=== PATIENT | female | born 1965 | race African-American/Black ===

== ENCOUNTER 2016-05-06 05:23 | Day surgery (SDC) | payer MEDICARE ==
[2016-05-05 12:25] LABS: HEMATOCRIT 37.2 % (36.0-48.0); HEMOGLOBIN 12.2 g/dL (12-16); MCH 27.9 pg (26.0-34.0); MCHC 32.8 g/dL (31.0-37.0); MCV 84.9 fL (80.0-100.0); RBC 4.38 10x6/uL (4.00-5.40); WBC 4.5 10x3/uL (4.8-10.8)
[2016-05-05 12:39] LABS: ANION GAP 11.8 mmol/L (8-16); CALCIUM 7.6 mg/dL (8.5-10.1); CARBON DIOXIDE 27.3 mmol/L (21.0-32.0); CREATININE - SERUM 1.1 mg/dL (0.6-1.3); POTASSIUM - SERUM 4.1 mmol/L (3.5-5.1)
[~2016-05-06] VITALS: Ht 162.6 cm; Wt 105.7 kg
[~2016-05-06 05:23] MED LIST: BACLOFEN10 MG PO; COZAAR50 MG PO; FARXIGA10 MG PO; FLAGYL500 MG PO; GABAPENTIN100 MG PO; HUMALOG 30100 UNITS/ SC; HYDROCODON-ACE1 EAC9 PO; HYDROCODONE-APA1 TAB PO; KEFLEX500 MG PO; LANTUS INSULIN10 ML SQ; LANTUS SOL100 UNIT/1; LANTUS SOL100 UNIT/1 SC; LISINOPRIL-HCTZ1 T11 PO; MOBIC7.5 MG PO; NORVASC10 MG PO; SYNTHROID150 MCG PO; SYNTHROID25 MCG PO; ZESTRIL10 MG PO; ZOCOR20 MG PO; ZOFRAN4 MG PO
[2016-05-06 08:02] VITALS: BP 142/91; Ht 162.6 cm; Wt 105.7 kg
--- NOTE | 2016-05-06 11:08 | NUR ---
EXT 2500,2525,2513. UNABLE TO REACH FAMILY. EXT 2550 TALKED TO GINO IN OP NO FAMILY IN ROOM. -ECOSTER
--- NOTE | 2016-05-06 14:14 | NUR ---
1407--PT COMPLAINS OF NAUSEA, BASIN WISE PROVIDED AND 4MG ZOFRAN GIVEN SIVP. WILL CONTINUE TO MONITOR. DMITRY ZAVALA
--- NOTE | 2016-05-06 14:45 | NUR ---
1445--PT CONTINUES TO COMPLAIN OF NAUSEA, REPORT CALLED TO DR PROCTOR, NEW ORDER RECIEVED. DMITRY RN
--- NOTE | 2016-05-06 17:34 | NUR ---
1504--ZOFRAN 4MG GIVEN SIVP. DMITRY ZAVALA 1615--PT SLEEPING, HARD TO AROUSE VERBALLY. PT REPORTS NAUSEA TO BE BETTER BUT DENIES NEEDING TO URINATE, WILL CONTINUE TO MONITOR. DMITRY ZAVALA 4367--PT VOIDS WITHOUT DIFFICULTY, IV DC'D. DMITRY ZAVALA
--- NOTE | 2016-05-08 09:40 | OP ---
PATIENT NAME: SAMRA CERDA MEDICAL RECORD: [id number] :61 LOCATION:D.[facility] ADMISSION DATE: SURGEON: JAYESH PROCTOR MD DATE OF OPERATION: 05/06/2016 PREOPERATIVE DIAGNOSIS: Recurrent umbilical hernia. POSTOPERATIVE DIAGNOSIS: Recurrent incarcerated umbilical hernia. PROCEDURES: Laparoscopic recurrent incarcerated umbilical hernia repair with Ventralight ST mesh, which was 4.5 inches in diameter and this was circular. SURGEON: Jayesh Proctor MD. VENDING MACHINE REFILLER: None. BLOOD LOSS: Minimal. ANESTHESIA: General. COMPLICATIONS: None. The risks, possible complications and alternatives to procedure were explained to the patient. She elects to proceed. OPERATIVE COURSE: The patient was conveyed to the operating room electively on 05/06/2016. General anesthesia was induced by the anesthesia staff. The abdomen was sterilely prepped and draped. An incision was accomplished in the left upper quadrant. A Veress needle was inserted through the incision into the peritoneal cavity. CO2 insufflation was begun. Once a sufficient pneumoperitoneum had been achieved, a 5-mm trocar was inserted here utilizing the Optiview device. CO2 insufflation was continued once the 5-mm trocar had been inserted. Another 5-mm trocar was inserted this time in the left side of the abdomen. Two 5-mm trocars were inserted in the right side of the abdomen. There was a great deal of adhesions. Most of them omental; however, there were some colonic adhesions in the cephalad. I began to take down the adhesions utilizing the Harmonic scalpel. There was no bowel injury during this adhesiolysis, which took 25 minutes. The hernia was at the inferior aspect of the mesh that had been previously placed. Once a thorough adhesiolysis had been performed, a prevesicular flap was created with the Harmonic scalpel. Intravenous methylene blue was given. There was no spillage of methylene blue and therefore, no evidence of a bladder injury. I completed taking down the anterior portion of the triangular ligament of the liver with the Harmonic scalpel. A small skin incision was accomplished at the inferior aspect of the umbilicus. I advanced a laparoscopic suture passer. I changed out the left upper quadrant 5-mm trocar for a 12-mm trocar. I advanced a rolled up Ventralight ST mesh in the peritoneal cavity. I grabbed the tubing with the laparoscopic suture passer and brought it out through the anterior abdominal wall. The tubing was cut. It was attached to the inflation device and then inflated. I then pulled the mesh up against the anterior abdominal wall, so that it abutted the anterior abdominal wall and the mesh. I did not attempt to remove the mesh that had been there previously. After inflating the inflation device, circumferential tacking OPERATIVE REPORT [id number] SAMRA CERDA with the SecureStrap Tacker was performed. The herniorrhaphy was then completed with circumferential tacking utilizing the SorbaFix Tacker. I cut the tubing. I removed the tubing as well as the inflation device in its entirety. There was no bleeding. I desufflated to a pressure of 8 and there was still no bleeding. The 12-mm trocar was removed. The Samuel-Rajni suture closure device and 0 Vicryl suture were used to close the left upper quadrant trocar site. The skin incisions were closed with interrupted 3-0 and 4-0 Vicryls. Benzoin and Steri-Strips were applied. A pressure dressing was applied as well as an abdominal binder. The patient will be dismissed home on [place] for pain. I will see her in the office in 2-3 weeks. TRANSINT:[id number] Voice Confirmation ID: [id number] DOCUMENT ID: [id number] JAYESH PROCTOR MD at 0940 CC: SHIRA KANG MD [id number] DICTATION DATE: 05/06/16 1241 SUPERVISOR STRIPPING: 05/06/162033 [facility] 05/06/16 [facility] [address] [place] [address]
--- NOTE | 2016-05-08 09:40 | HP ---
PATIENT: SAMRA CERDA MEDICAL RECORD: [id number] ACCOUNT: [id number] LOCATION:[facility] : 61 ADMISSION DATE: 05/06/16 HISTORY AND PHYSICAL EXAMINATION Addendum I have seen the patient. I have examined her this morning. We discussed the risks, possible complications and alternatives to procedure. She has recurrent umbilical hernia. I performed her prior umbilical hernia repair with mesh. Her physical examination is unchanged since I saw her in the office. TRANSINT:[id number] Voice Confirmation ID: [id number] DOCUMENT ID: [id number] JAYESH PROCTOR MD at 0940 CC: [id number] DICTATION DATE: 05/06/16 1006 LICENSED MENTAL HEALTH PROFESSIONAL: 05/06/16 1117 [facility] 05/06/16 [address] [place] [address]
== END 2016-05-06 17:50 | disposition home or self-care (01) ==
LOC: D.OPS 05:23 → D.PAN 08:00 → D.OPS 17:50
PROVIDERS: Anesthesiology
DX: K42.0 Umbilical hernia with obstruction, without gangrene (principal)

== ENCOUNTER 2016-06-18 06:03 | Day surgery (SDC) | payer MEDICARE ==
[2016-05-06 08:02] VITALS: BMI 40.1
--- NOTE | 2016-06-18 13:29 | NUR ---
1300-RECD TO ROOM FOR COLONOSCOPY. NO RESULTS FROM COLON PREP. DR LOZADA NOTIFIED. PROCEDURE CX. DIRECTED TO OFFICE FOR ADDITIONAL INSTRUCTIONS AND TO RESCHEDULE.
== END 2016-06-18 13:15 | disposition home or self-care (01) ==
LOC: D.OPS 06:03
DX: R10.9 Unspecified abdominal pain (principal); Z80.0 Family history of malignant neoplasm of digestive organs; Z01.810 Encounter for preprocedural cardiovascular examination; Z01.811 Encounter for preprocedural respiratory examination; Z01.812 Encounter for preprocedural laboratory examination; Z53.9 Procedure and treatment not carried out, unspecified reason

== ENCOUNTER → 2016-09-24 07:50 | Outpatient (CLI) | payer MEDICARE ==
[2016-05-06 08:02] VITALS: BMI 40.1
== END | disposition home or self-care (01) ==
LOC: D.US 07:50
DX: K76.0 Fatty (change of) liver, not elsewhere classified (principal)

== ENCOUNTER 2016-09-28 08:13 | Day surgery (SDC) | payer MEDICARE ==
[2016-09-24 08:30] LABS: BILIRUBIN - DIRECT 0.06 mg/dL (0.00-0.30); BILIRUBIN - INDIRECT 0.16 mg/dL (0.00-1.00); BILIRUBIN - TOTAL 0.22 mg/dL (0.2-1.3); PROTEIN - SERUM 7.1 g/dL (6.4-8.2)
[~2016-09-28] VITALS: Ht 162.6 cm; Wt 102.3 kg
[2016-09-28 08:40] VITALS: BP 139/74; Ht 162.6 cm; Wt 102.3 kg
[2016-09-28 08:48] LABS: BASOPHILS 0.2 % (0-2); EOSINOPHILS 2.4 % (0-7); HEMATOCRIT 35.1 % (36.0-48.0); HEMOGLOBIN 11.6 g/dL (12-16); LYMPHOCYTES 33.9 % (15-50); MCH 28.4 pg (26.0-34.0); MEAN PLATELET VOLUME 10.8 fL (7.4-10.4); MONOCYTES 5.8 % (2-11); NEUTROPHILS 57.7 % (40-80); PLATELET COUNT 164 10x3/uL (130-400); RBC 4.08 10x6/uL (4.00-5.40); RDW 12.7 % (11.5-14.5); WBC 5.5 10x3/uL (4.8-10.8)
[2016-09-28 09:27] LABS: ANION GAP 8.9 mmol/L (8-16); CALCIUM 8.2 mg/dL (8.5-10.1); CARBON DIOXIDE 30.2 mmol/L (21.0-32.0); CREATININE - SERUM 1.2 mg/dL (0.6-1.3); POTASSIUM - SERUM 3.1 mmol/L (3.5-5.1)
--- NOTE | 2016-09-28 11:54 | NUR ---
1154-INJECT GARCIA INK 3 CC IN CECAL AREA.
--- NOTE | 2016-09-28 13:00 | NUR ---
UP AND DRESSED. AWAITING DAUGHTER TO RETURN FOR RIDE FOR DISCHARGE. INSTRUCTED TO CALL WHEN READY FOR A WHEELCHAIR FOR DISCHARGE.
--- NOTE | 2016-09-29 07:48 | OP ---
PATIENT NAME: SAMRA CERDA MEDICAL RECORD: [id number] :61 LOCATION:D.[facility] ADMISSION DATE: SURGEON: PATTY LOZADA DO DATE OF OPERATION: 09/28/2016 PROCEDURE: Colonoscopy with polypectomy, hemostasis, and submucosal injection. INDICATIONS FOR PROCEDURE: Family history of colon cancer in her father as well as change in bowel habits, which have resolved. SCOPE: Olympus video pediatric colonoscope. MEDICATIONS: Propofol 950mg IV per anesthesia. ESTIMATED BLOOD LOSS: 3 mL. COMPLICATIONS: No immediate complications. FINDINGS: Informed consent was given. The patient was made comfortable with the above medication. After reaching an adequate level of sedation by slow IV push, the patient was placed on her left side. A digital rectal examination was performed, it was normal. The endoscope was then advanced under direct visualization through the rectum to the cecum with visualization of the appendiceal orifice and ileocecal valve. In the cecum, there were 2 semi-sessile and flat polyps measuring approximately 1-1.2 cm in size, a piece. The first polyp was located near the appendiceal orifice. An attempt was made to lift the polyp with normal saline injection. The polyp did not lift well. A hot snare was placed around the entire polyp and a snare and cautery polypectomy was performed. After the polyp was removed, there was noted to be a moderate amount of bleeding in an arterial fashion. Two endoclips were placed successfully with good hemostasis noted. A second polyp in the cecum located just behind a fold was visualized and measured the same size. It was attempted to be lifted, but did not lift ease early. Biopsies were taken and there was noted to be a fair amount of bleeding from the biopsy sites. For this reason, a simple ablation was attempted. Forcep biopsies were used for this. The entire polyp could not be ablated due to its location right behind the fold. When cautery was used, the fold covering the polyp was inadvertently being a bleed as well. For this reason, this maneuver was discontinued. A Hanna Net was used to pick up attendant the polyp that was located in the cecum. A withdrawal with the polyp was performed over approximately 6 minutes. No obvious polyps were seen, but there was some fluid that could not be removed and the polyp in the Hanna Net was impeding some view. Retroflexion was performed after the polyp was removed from the patient. There were some small nonbleeding internal hemorrhoids visualized. The scope was then withdrawn from the patient. The patient tolerated the procedure well and there were no complications. IMPRESSION: 1. Two polyps located in the cecum, 1 removed with hot snare, the other biopsied and partially ablated. A tattoo was placed distally to the second polyp to aid in visualization on future procedures. 2. No other polyps were visualized, but this was a limited examination due to having a polyp in the net with the catheter through the channel and not being able to remove fluid for further visualization. 3. Small nonbleeding internal hemorrhoids. OPERATIVE REPORT [id number] SAMRA CERDA PLAN AND RECOMMENDATIONS: 1. Discharge home when parameters are met. 2. High fiber diet. 3. Continue current medications, but hold any possible medications which could thin the blood including antinflammatory. 4. We will make a referral to Dr. Sen for APC of the remaining cecal polyp and any residual tissue which may be visualized in the cecum. 5. Further recommendations pending, outcome of Dr. Sen's procedure. TRANSINT:[id number] Voice Confirmation ID: [id number] DOCUMENT ID: [id number] PATTY LOZADA DO at 0748 CC: [id number] DICTATION DATE: 09/28/16 1212 PLANT SAFETY ENGINEER: 09/28/16 1332 [facility] 09/28/16 [facility] [address] [place] [address]
== END 2016-09-28 13:36 | disposition home or self-care (01) ==
LOC: D.OPS 08:13
PROVIDERS: Anesthesiology; Internal Medicine Gastroenterology
DX: D12.0 Benign neoplasm of cecum (principal); K64.8 Other hemorrhoids; Z80.0 Family history of malignant neoplasm of digestive organs; Z01.812 Encounter for preprocedural laboratory examination

== ENCOUNTER → 2016-11-24 17:58 | Outpatient (CLI) | payer MEDICARE ==
[2016-09-28 08:40] VITALS: BMI 38.7
== END | disposition home or self-care (01) ==
LOC: D.MAMMO 10:15
DX: Z12.31 Encounter for screening mammogram for malignant neoplasm of breast (principal)

== ENCOUNTER 2016-12-09 05:23 | Day surgery (SDC) | payer MEDICARE ==
[2016-12-07 11:22] LABS: HEMATOCRIT 38.9 % (36.0-48.0); MCH 28.4 pg (26.0-34.0); MCHC 33.4 g/dL (31.0-37.0); MCV 84.9 fL (80.0-100.0); MEAN PLATELET VOLUME 10.6 fL (7.4-10.4); RBC 4.58 10x6/uL (4.00-5.40); RDW 12.7 % (11.5-14.5); WBC 5.4 10x3/uL (4.8-10.8)
[2016-12-07 11:34] LABS: ANION GAP 13.2 mmol/L (8-16); CARBON DIOXIDE 26.6 mmol/L (21.0-32.0); CREATININE - SERUM 1.3 mg/dL (0.6-1.3); POTASSIUM - SERUM 3.8 mmol/L (3.5-5.1)
[2016-12-09 06:34] VITALS: BP 127/86; BMI 39.5
--- NOTE | 2016-12-09 08:43 | NUR ---
PILLOW BETWEEN ARMS AND FOAM BETWEEN LEGS
--- NOTE | 2016-12-09 08:52 | NUR ---
BOVIE PADS X2 PLACED ON DORON THIGHS. L/N [id number] EXP 09/22/18 L/N [id number] EXP 04-27-18
--- NOTE | 2016-12-09 15:08 | NUR ---
1130--IV DC'D, PT UP TO DRESS AT THIS TIME. DMITRY ZAVALA 1140--DISCHARGE INSTRUCTIONS GIVEN, PT VERBALIZES UNDERSTANDING. PT OFF UNIT VIA WC. DMITRY ZAVALA
--- NOTE | 2016-12-11 10:04 | OP ---
PATIENT NAME: SAMRA CERDA MEDICAL RECORD: [id number] :61 LOCATION:D.[facility] ADMISSION DATE: SURGEON: JAYESH PROCTOR MD DATE OF OPERATION: 12/09/2016 PREOPERATIVE DIAGNOSIS: History of cecal polyps times 2, which have been tattooed. POSTOPERATIVE DIAGNOSES: 1. Cecal polyp, which has been tattooed. The tattoo was faded. 2. Scar at the site of the secondary polyp. I noted no recurrent or persistent polypoid tissue. I noted no tattoo at the scar. PROCEDURES: 1. Total colonoscopy to cecum. 2. Cecal polypectomy. 3. Endoscopic epinephrine injection for hemostasis. 4. Endoscopic tattooing of the scar as well as the polypectomy site, which was underneath the fold. 5. Cold biopsy of the scar and then treatment with the argon plasma bottle filler. SURGEON: Jayesh Proctor MD STAGE DRIVER: None. BLOOD LOSS: Minimal. ANESTHESIA: General. COMPLICATIONS: None. The risks, possible complications and alternatives to the procedure were explained to the patient. She elects to proceed. OPERATIVE COURSE: The patient was conveyed to the operating room electively on 12/09/2016. General anesthesia was induced by the anesthesia staff. The patient was placed in the Walker position. A digital rectal examination was performed. A colonoscope was inserted through the anus. It was easily advanced to the cecum. The prep was adequate. I noted the cecal polyp, which was underneath the fold. In order to get the cecal polyp to lift away from the colonic wall and also to provide a heat sink in the cecum, which is the area of the colon that most likely perforated with this technique and also for hemostasis, I elected to perform endoscopic epinephrine injection through sclerotherapy needle. The sclerotherapy needle was advanced. The needle was deployed. I injected epinephrine at 4 points around the polyp. I then performed a piecemeal polypectomy utilizing the cold endoscopic biopsy forceps. I removed the entire polyp in this fashion. I then treated the area with the argon plasma bottle filler. In order to identify this area in the future should there be regrowth of the polypoid tissue, I elected to retattoo the area. I advanced a sclerotherapy needle. Through the sclerotherapy needle, I injected submucosally several cc of Myrtle ink. Sclerotherapy needle was removed. OPERATIVE REPORT [id number] SAMRA CERDA I examined the rest of the cecum. I noted the scar where the previous polypectomy by Dr. Fontana had been performed. I biopsied the scar. I noted no recurrence or persistence of a polyp. I treated the area with the argon plasma bottle filler utilizing the right colon setting in the forced mode. I then advanced the sclerotherapy needle. I performed submucosal endoscopic tattooing of the area around the scar with several cc of Myrtle ink. The endoscope was then withdrawn under direct vision. A combination of direct imaging as well as narrow band imaging was performed. A retroflexed view was obtained in the rectum. I then unretroflexed the scope and removed it under direct vision. I will plan to see the patient in my office in 2-3 weeks. I will plan for her next colonoscopy to take place with the argon plasma bottle filler in 1 year. As she is at a risk for a post-polypectomy syndrome, she is going to be dismissed home on 7 days of Cipro as well as 7 days of Flagyl. TRANSINT:[id number] Voice Confirmation ID: [id number] DOCUMENT ID: [id number] JAYESH PROCTOR MD at 1004 CC: SHIRA KANG MD and PATTY FONTANA DO [id number] DICTATION DATE: 12/09/16 1002 TAXATION CONSULTANT: 12/09/16 1205 [facility] 12/09/16 [facility] [address] [place] [address]
--- NOTE | 2016-12-11 10:04 | HP ---
PATIENT: SAMRA CERDA MEDICAL RECORD: [id number] ACCOUNT: [id number] LOCATION:[facility] A : 61 ADMISSION DATE: 12/09/16 HISTORY AND PHYSICAL EXAMINATION ADDENDUM There is a typed history and physical on the chart. I reviewed my note. The patient's primary care physician is Dr. Hayward. The patient's lamp cleaner is Dr. Fontana. The patient has 2 cecal polyps. They have been biopsied. PLAN: For colonoscopy with polypectomy utilizing the argon plasma spring assembler. TRANSINT:[id number] Voice Confirmation ID: [id number] DOCUMENT ID: [id number] JAYESH PROCTOR MD at 1004 CC: SCOTTY ESPINOZA MD and PATTY FONTANA DO [id number] DICTATION DATE: 12/09/16 0950 CASE LINER: 12/09/16 1052 [facility] 12/09/16 [address] [place] [address]
== END 2016-12-09 11:40 | disposition home or self-care (01) ==
LOC: D.OPS 05:23 → D.PAN 08:00 → D.OPS 11:40
PROVIDERS: Anesthesiology
DX: D12.0 Benign neoplasm of cecum (principal); Z01.812 Encounter for preprocedural laboratory examination

== ENCOUNTER → 2016-12-22 12:28 | Outpatient (CLI) | payer MEDICARE ==
[2016-12-09 06:34] VITALS: BMI 39.5
== END | disposition home or self-care (01) ==
LOC: D.MAMMO 08:30
DX: R92.8 Other abnormal and inconclusive findings on diagnostic imaging of breast (principal)

== ENCOUNTER 2017-04-06 10:34 | Emergency (ER) | payer MEDICARE ==
[2017-04-06 12:11] LABS: BASOPHILS 0.2 % (0-2); EOSINOPHILS 2.1 % (0-7); HEMATOCRIT 39.8 % (36.0-48.0); HEMOGLOBIN 13.4 g/dL (12-16); IMMATURE GRANULOCYTES 0.2 % (0-5); LYMPHOCYTES 31.5 % (15-50); MCH 28.3 pg (26.0-34.0); MCHC 33.7 g/dL (31.0-37.0); MCV 84.1 fL (80.0-100.0); MEAN PLATELET VOLUME 11.4 fL (7.4-10.4); MONOCYTES 8.1 % (2-11); NEUTROPHILS 57.9 % (40-80); PLATELET COUNT 154 10x3/uL (130-400); RBC 4.73 10x6/uL (4.00-5.40); RDW 12.9 % (11.5-14.5); WBC 6.1 10x3/uL (4.8-10.8)
[2017-04-06 12:29] LABS: ANION GAP 11.3 mmol/L (8-16); BILIRUBIN - TOTAL 0.43 mg/dL (0.2-1.3); CALCIUM 8.8 mg/dL (8.5-10.1); CARBON DIOXIDE 26.1 mmol/L (21.0-32.0); CREATININE - SERUM 1.1 mg/dL (0.6-1.3); POTASSIUM - SERUM 4.4 mmol/L (3.5-5.1); PROTEIN - SERUM 7.4 g/dL (6.4-8.2)
[2017-04-06 12:42] LABS: APPEARANCE HAZY (CLEAR); BILIRUBIN NEGATIVE (NEGATIVE); COLOR YELLOW (YELLOW); GLUCOSE 1000 mg/dL (NEGATIVE); KETONE NEGATIVE (NEGATIVE); NITRITE NEGATIVE (NEGATIVE); PROTEIN 2+ mg/dL (NEGATIVE); UROBILINOGEN NORMAL (NORMAL)
[2017-04-06 12:43] LABS: BACTERIA MODERATE /hpf (NONE SEEN); EPITHELIAL CELLS 0-5 /hpf (0-5); HYALINE CAST OCC /lpf (NONE SEEN); MUCUS <1+ /lpf (NONE SEEN); RED CELLS - URINE 0-5 /hpf (0-5); WHITE CELLS - URINE 0-5 /hpf (0-5)
== END 2017-04-06 14:50 | disposition home or self-care (01) ==
LOC: D.ER 10:34
PROVIDERS: Physician Assistant
DX: M54.16 Radiculopathy, lumbar region (principal); E11.9 Type 2 diabetes mellitus without complications; I10 Essential (primary) hypertension; R10.30 Lower abdominal pain, unspecified

== ENCOUNTER 2018-03-21 08:00 | Outpatient (CLI) | payer MEDICARE | END 2018-03-21 09:00 | disposition home or self-care (01) | LOC: D.MAMMO 08:00 | DX: Z12.31 Encounter for screening mammogram for malignant neoplasm of breast (principal) ==

== ENCOUNTER 2018-06-18 12:40 | Observation (INO) | payer MEDICARE ==
[~2018-06-18] VITALS: Ht 162.6 cm; Wt 104.2 kg
[2018-06-18 13:11] LABS: BASOPHILS 0.1 % (0-2); EOSINOPHILS 0 % (0-7); HEMATOCRIT 35.7 % (36.0-48.0); IMMATURE GRANULOCYTES 0.3 % (0-5); MCH 28.5 pg (26.0-34.0); MCHC 33.6 g/dL (31.0-37.0); MCV 84.8 fL (80.0-100.0); MEAN PLATELET VOLUME 10.8 fL (7.4-10.4); MONOCYTES 3.5 % (2-11); NEUTROPHILS 84.1 % (40-80); PLATELET COUNT 151 10x3/uL (130-400); RBC 4.21 10x6/uL (4.00-5.40); RDW 13.1 % (11.5-14.5); WBC 9.6 10x3/uL (4.8-10.8)
[2018-06-18 13:19] LABS: APTT 37.9 SECONDS (22.8-39.4); INR 1.15 (0.85-1.17); PROTIME 14.2 SECONDS (11.6-15.0)
[2018-06-18 13:33] LABS: ALBUMIN 2.5 g/dL (3.4-5.0); ALKALINE PHOSPHATASE 91 U/L (46-116); ALT (SGPT) 20 U/L (10-68); BILIRUBIN - TOTAL 0.36 mg/dL (0.2-1.3); CALC OSMOLALITY 281 mosm/kg (275-300); CALCIUM 8.1 mg/dL (8.5-10.1); CARBON DIOXIDE 22.9 mmol/L (21.0-32.0); CHLORIDE - SERUM 103 mmol/L (98-107); CREATININE - SERUM 1.4 mg/dL (0.6-1.3); POTASSIUM - SERUM 3.7 mmol/L (3.5-5.1); SODIUM 137 mmol/L (136-145); UREA NITROGEN 12 mg/dL (7-18); eGFR NON AFRICAN AMERICAN 41 mL/min (90-120)
[2018-06-18 13:38] LABS: GLUCOSE 245 mg/dL (74-106)
[2018-06-18 13:48] LABS: CKMB 1.2 U/L (0.0-3.6); CREATINE KINASE 339 UL (21-215); PRO BNP 1888 pg/mL (0-125)
[2018-06-18 13:52] LABS: TROPONIN-I 0.064 ng/mL (0.000-0.060)
--- NOTE | 2018-06-18 13:55 | NUR ---
TROPONIN 0.064
[2018-06-18 14:02] LABS: APPEARANCE CLEAR (CLEAR); COLOR YELLOW (YELLOW)
[2018-06-18 14:03] LABS: BILIRUBIN NEGATIVE (NEGATIVE); GLUCOSE 250 mg/dL (NEGATIVE); KETONE NEGATIVE (NEGATIVE); NITRITE NEGATIVE (NEGATIVE); PROTEIN 3+ mg/dL (NEGATIVE); UROBILINOGEN NORMAL (NORMAL)
[2018-06-18 14:05] LABS: BACTERIA MANY /hpf (NONE SEEN); HYALINE CAST OCC /lpf (NONE SEEN); MUCUS >1+ /lpf (NONE SEEN)
[2018-06-18 14:08] LABS: AMYLASE - SERUM 33 U/L (25-115); LIPASE 114 U/L (73-393)
--- NOTE | 2018-06-18 14:30 | NUR ---
PATIENT SLEEPING AROUSES TO VERBAL STIMULI. C/O INCREASED SOB AND FATIGUE. FAMILY AT BEDSIDE. UPDATED ON PLAN OF CARE AND DELAYS IN CARE. WILL CONTINUE TO MONITOR.
[2018-06-18 15:00] VITALS: BP 171/88
--- NOTE | 2018-06-18 15:30 | NUR ---
PATIENT SLEEPING AROUSES TO VERBAL STIMULI. FAMILY AT BEDSIDE. UPDATED ON PLAN OF CARE AND DELAYS IN CARE. WILL CONTINUE TO MONITOR.
[2018-06-18 16:23] VITALS: BP 181/96
--- NOTE | 2018-06-18 17:23 | NUR ---
ADMITTED TO ROOM 2107 FROM ER. ALERT ADN ORIENTED. IV R AC WITH NS AT 100CC/HR. CL IN REACH. SKIN CDI. CL IN REACH. SAFETY PRECAUTIONS GIVEN.
[2018-06-18 17:40] VITALS: BMI 38.7
--- NOTE | 2018-06-18 18:02 | NUR ---
SL R AC INFILTRATED ON ADMIT. HEAT APPLIED AND SL DC'D WITH CATH INTACT. L HAND SL WON'T FLUSH. WILL NEED NEW IV SITED.
[2018-06-18] MEDS ORDERED: BASAGLAR INSULIN SQ (18:11)
--- NOTE | 2018-06-18 18:17 | NUR ---
SCDS AND TELEMETRY PLACED ON PATIENT.
--- NOTE | 2018-06-18 18:21 | NUR ---
NO CHANGE IN ASSESSMENT. FAMILY AT BS. CL IN REACH.
--- NOTE | 2018-06-18 19:26 | NUR ---
PT IN BED. DENIES NEEDS AT THIS TIME.
[2018-06-18 19:50] VITALS: BP 134/66
--- NOTE | 2018-06-18 20:48 | NUR ---
IV SITED TO L WRIST 22G 1 STICK. IV IN L HAND REMOVED WITH CATH TIP INTACT.
--- NOTE | 2018-06-18 21:35 | NUR ---
PT REFUSING TELEMETRY AT THIS TIME.
[2018-06-18 23:55] VITALS: BP 136/66
--- NOTE | 2018-06-19 02:02 | NUR ---
I have reviewed this patient and I concur with the Shift Assessment completed by the Licensed Practical Nurse today this shift.
[2018-06-19 03:14] LABS: BASOPHILS 0 % (0-2); EOSINOPHILS 0.2 % (0-7); HEMATOCRIT 35.4 % (36.0-48.0); HEMOGLOBIN 11.7 g/dL (12-16); IMMATURE GRANULOCYTES 0.3 % (0-5); LYMPHOCYTES 15.4 % (15-50); MCH 28.7 pg (26.0-34.0); MCHC 33.1 g/dL (31.0-37.0); MCV 86.8 fL (80.0-100.0); MEAN PLATELET VOLUME 10.6 fL (7.4-10.4); MONOCYTES 7.5 % (2-11); NEUTROPHILS 76.6 % (40-80); PLATELET COUNT 130 10x3/uL (130-400); RBC 4.08 10x6/uL (4.00-5.40); RDW 13.2 % (11.5-14.5); WBC 6.6 10x3/uL (4.8-10.8)
[2018-06-19 03:41] LABS: CALCIUM 7.7 mg/dL (8.5-10.1); CARBON DIOXIDE 23.9 mmol/L (21.0-32.0); CREATININE - SERUM 1.7 mg/dL (0.6-1.3); POTASSIUM - SERUM 3.9 mmol/L (3.5-5.1)
[2018-06-19 03:42] LABS: TROPONIN-I 0.063 ng/mL (0.000-0.060)
[2018-06-19 03:55] VITALS: BP 143/63
--- NOTE | 2018-06-19 07:33 | NUR ---
PT AWAKE AND ORIENTED. NO COMPLAINTS/CONCERNS VOICED AT THIS TIME. CL IN REACH. NO FAMILY AT BEDSIDE AT THIS TIME. SRX2.
[2018-06-19 08:10] VITALS: BP 136/67
[2018-06-19 10:25] VITALS: Ht 162.6 cm; Wt 104.2 kg
[2018-06-19] MEDS ORDERED: FLAGYL500 MG PO (10:27)
[2018-06-19] MEDS ORDERED: FLUTICASONE PRO16 GM NASAL (10:27)
--- NOTE | 2018-06-19 11:28 | NUR ---
ESCORTED OUT VIA WHEELCHAIR TO POV WITH CHILD.
--- NOTE | 2018-06-20 08:38 | MORECARE ---
CASE MANAGEMENT DISCHARGE SUMMARY PATIENT: SAMRA CERDA UNIT: [id number] ADM DATE: 06/18/18 AGE: 53 : 61 SEX: F ROOM/BED: D.2107 AUTHOR: ADELAIDA HER PHYSICIAN: REFERRING PHYSICIAN: SHIRA KANG MD DATE OF SERVICE: 06/20/18 Discharge Plan Patient Name: SAMRA CERDA [facility] [facility] 1965 Planned Disposition: Home Anticipated Discharge Date: 06/19/18 Discharge Date: 06/19/2018 Expected LOS: 1 Initial Reviewer: [email or web address] Initial Review Date: 06/20/2018 Generated: 06/20/18 9:38 am Patient Name: SAMRA CERDA Page [phone] at 0838 All edits/amendments must be made on the electronic document DICTATION DATE: 06/20/18837 PEANUT VENDOR: LILLIE 06/20/1838 RPT#: [id number] DC DATE:06/19/18 STATUS: DIS IN [facility] [address] [facility] [address] END OF REPORT
== END 2018-06-19 11:28 | disposition home or self-care (01) ==
LOC: D.ER 12:40 → D.EDHOLD 16:37 → OBSVTIME 16:38 → D.M2 16:40
PROVIDERS: Family Medicine; ADMIT Family Medicine; ATTEND Family Medicine
DX: J40 Bronchitis, not specified as acute or chronic (principal); J32.9 Chronic sinusitis, unspecified; R79.89 Other specified abnormal findings of blood chemistry; N76.0 Acute vaginitis; E86.0 Dehydration; E11.65 Type 2 diabetes mellitus with hyperglycemia; I10 Essential (primary) hypertension; Z91.14 Patient's other noncompliance with medication regimen; E03.9 Hypothyroidism, unspecified

== ENCOUNTER 2018-07-05 16:39 | Inpatient (IN) | payer MEDICARE ==
[~2018-07-05] VITALS: Ht 162.6 cm; Wt 106.8 kg
[~2018-07-05 16:39] MED LIST changes: +BASAGLAR INSULIN SQ; +FLUTICASONE PRO16 GM NASAL
--- NOTE | 2018-07-05 17:35 | NUR ---
FSBS= 58 MG/DL
[2018-07-05 17:44] VITALS: BP 194/84
[2018-07-05 17:54] LABS: BASOPHILS 0.2 % (0-2); EOSINOPHILS 2.4 % (0-7); HEMATOCRIT 37.1 % (36.0-48.0); HEMOGLOBIN 12.2 g/dL (12-16); IMMATURE GRANULOCYTES 0.2 % (0-5); LYMPHOCYTES 28.5 % (15-50); MCH 28.3 pg (26.0-34.0); MCHC 32.9 g/dL (31.0-37.0); MCV 86.1 fL (80.0-100.0); MEAN PLATELET VOLUME 10.5 fL (7.4-10.4); MONOCYTES 5.9 % (2-11); NEUTROPHILS 62.8 % (40-80); RBC 4.31 10x6/uL (4.00-5.40); RDW 13.6 % (11.5-14.5); WBC 5.4 10x3/uL (4.8-10.8)
[2018-07-05 17:56] LABS: PLATELET COUNT 169 10x3/uL (130-400)
--- NOTE | 2018-07-05 18:00 | NUR ---
MEAL SEVED/APPETITE GOOD
[2018-07-05 18:14] LABS: ALBUMIN 2.7 g/dL (3.4-5.0); ALKALINE PHOSPHATASE 84 U/L (46-116); ALT (SGPT) 26 U/L (10-68); BILIRUBIN - TOTAL 0.17 mg/dL (0.2-1.3); CALC OSMOLALITY 287 mosm/kg (275-300); CALCIUM 8.4 mg/dL (8.5-10.1); CARBON DIOXIDE 26.2 mmol/L (21.0-32.0); CHLORIDE - SERUM 110 mmol/L (98-107); CREATININE - SERUM 1.4 mg/dL (0.6-1.3); POTASSIUM - SERUM 3.6 mmol/L (3.5-5.1); PROTEIN - SERUM 6.8 g/dL (6.4-8.2); SODIUM 145 mmol/L (136-145); UREA NITROGEN 14 mg/dL (7-18); eGFR NON AFRICAN AMERICAN 41 mL/min (90-120)
[2018-07-05 18:15] VITALS: BP 123/49
[2018-07-05 18:18] LABS: GLUCOSE 69 mg/dL (74-106)
[2018-07-05 18:26] LABS: CKMB 2.9 U/L (0.0-3.6); CREATINE KINASE 386 UL (21-215); KETONE - SERUM NEGATIVE (NEGATIVE); MAGNESIUM - SERUM 1.9 mg/dL (1.8-2.4); PRO BNP 196 pg/mL (0-125)
--- NOTE | 2018-07-05 18:26 | NUR ---
FSBS= 111MG/DL
[2018-07-05] MEDS ORDERED: HUMULIN R100 U/ML SQ ×2 (18:35)
[2018-07-05] MEDS ORDERED: NEURONTIN 400400 MG PO (18:36)
[2018-07-05] MEDS ORDERED: LISINOPRIL20 MG PO (18:36)
[2018-07-05] MEDS ORDERED: TOPROL XL25 MG PO (18:36)
[2018-07-05] MEDS ORDERED: COZAAR25 MG PO (18:37)
[2018-07-05] MEDS ORDERED: METOPROLOL TART25 MG PO (18:37)
[2018-07-05 18:54] LABS: TROPONIN-I 0.079 ng/mL (0.000-0.060)
--- NOTE | 2018-07-05 18:57 | NUR ---
RCVD TC FROM LAB TROPONIN = 0.079, DR ALEMAN NOTIFIED
--- NOTE | 2018-07-05 19:01 | NUR ---
BS REPORT TO SALLY LARRY BY SBAR FORMAT
--- NOTE | 2018-07-05 19:17 | NUR ---
PT RETURNED FROM CT
--- NOTE | 2018-07-05 19:24 | NUR ---
BS 102, OJ GIVEN TO PT TO DRINK. PT REPROTS VISION IS SLOWLY RETURNING TO LEFT EYE
[2018-07-05 20:00] VITALS: BP 174/86
[2018-07-05 20:11] LABS: CKMB 2.1 U/L (0.0-3.6); CREATINE KINASE 341 UL (21-215)
[2018-07-05 20:12] LABS: TROPONIN-I 0.077 ng/mL (0.000-0.060)
--- NOTE | 2018-07-05 21:50 | NUR ---
RECIEVED REPORT FROM SALLY CADENA. WHO RECIEVED REPORT FROM ER. LILLY ON INITIAL ASSESMENT. PT VOICED HER CONCERN ABOUT HOW HOT HER ROOM WAS. EXPLAINED THE PT THAT WE ARE WORKING TO GET THE AIR BACK ON. FAN PROVIDED TO PT AT THIS TIME. PIV LAC/ RAC PATENT. NO S/S OF RESP DISTRESS. FAMILY AT BEDSIDE. ADMISSION ASSESSMENT COMPLETED. PT A GOOD HISTORIAN. ALL PT BELONGINGS SENT HOME WITH FAMILY. GLASSES ON, PT STATES SHE IS UNABLE TO SEE ANYTHING RIGHT NOW. TELEMETRY ON, SINUS ON MONITOR. PT DENIES ANY FURTHER NEEDS AT THIS TIME WILL CPOC. CL IN REACH, BED IN LOW, SR UP X2.
--- NOTE | 2018-07-05 22:00 | NUR ---
FOUND PT RAC PIV LEAKING WITH MINIMAL AMOUNT OF BLOOD. REMONED THE IV. PLACED 2X2 GAUZE AND TAPED. FSBS 88 ORANGE JUICE GIVEN. FAMILY STATES BLOOD SUGAR TENDS TO DROP REALLY FAST. WILL CTM.
[2018-07-05 22:11] VITALS: BP 130/68; Ht 162.6 cm; Wt 106.8 kg
[2018-07-06] MEDS ORDERED: HYDROCODON-ACE1 EA10 PO (00:13)
[2018-07-06] MEDS ORDERED: NEURONTIN 300300 MG PO (00:14)
[2018-07-06 00:30] VITALS: BP 162/79
--- NOTE | 2018-07-06 01:30 | NUR ---
PT STATES SHE IS HAVING A HEADACHE AND BACK PAIN AND SHE REFUSED TAKING TYLENOL 650MG. CALLED DR. KANG. ORDERED NORCO-10/325MG Q4HP PRN. FISRT DOSE GIVEN. PT VOICED THANKS. STILL COMPLAINS ABOUT HER ROOM TEMP. WILL CPOC.
--- NOTE | 2018-07-06 02:32 | NUR ---
PT STATES SHE WANTS TO BE WHEELED DOWN TO THE E.R STATES "IT'S TO HOT FOR ME TO STAY IN THIS ROOM FOR ONE MORE SECOND" WHEELED PT DOWN TO E.R WAITING AREA. NOTIFY CHARGE/ SENIOR EMBEDDED SOFTWARE ENGINEER AND ALSO E.R CHEMICAL MANAGER. PT VOICED THANKS AND THAT SHE FEELS A LOT BETTER. WILL CPOC.
--- NOTE | 2018-07-06 04:26 | NUR ---
PT BACK FROM THE E.R PT OVERHEARD PT TALKING TO DAUGHTER ON THE PHONE THAT NO ONE HAS COME TO CHECK ON HER SINCE SHE HAS BEEN IN THE E.R. I HAVE CHECK ON PT TWICE SINCE I WHEEL HER DOWNSTAIRS. LAST TIME WAS TO FIX HER TELE METRY LEADS. EARTH SCIENCE PROFESSOR CHECK BP, 185/83. RECHECKED BP 178/67. WILL NOTIFY DR. KANG. PT STATES SHE DOES NOT FEEL COMFORTABLE STAYING IN THE HOSPITAL. STATES SHE WANTS TO GO HOME. PARK MANAGER CALLED TO ASK WHY PT IV WAS NOT INFUSING. NOTIFY PARK MANAGER, THAT PT STATES SHE DOES NOT WANT ANY IV RUNNING @ THIS TIME. ALSO PT BLOOD GLUCOSE HAS BEEN RUNNING LOW, AND BLOOD PRESSURE INCREASING, AND THAT IT MAKE SENSE NOT TO RUN IV @ HIGH RATE. PT CALLED DAUGHTER. BABAR STATES SHE IS ON HER WAY TO THE HOSPITAL. WILL CPOC.
[2018-07-06 04:30] VITALS: BP 185/83
--- NOTE | 2018-07-06 05:03 | NUR ---
NOTIFIED DR. KANG ABOUT PT'S INCREASING BLOOD PRESSURE. DR KANG ORDERED CLONIDINE O.1MG PO Q2H NEEDED FOR A SYSTOLIC GREATER THAN 160. PT ALSO REFUSED TO GET HER BLOOD SUGAR CHECKED.
--- NOTE | 2018-07-06 05:24 | NUR ---
CLONIDINE 0.1MG GIVEN PER PROVIDERS ORDER. NOTIFIED CHARGE NURSE AND BIODIESEL PRODUCTION TECHNICIAN ABOUT HOW PT IS BEEN DEMANDING. ALSO DR. KANG IS WAS NOTIFIED. HE STATES HE IS GOING TO BE IN THE UNIT FAST HE COULD TO TALK TO ABOUT DIAGNOSIS. WILL CPOC.
--- NOTE | 2018-07-06 07:00 | NUR ---
PT STATES SHE COULD NOT BREATHE IN HER ROOM, PT APPEARS ANXIOUS AND RESTLESS. DC'D PT'S IV BECAUSE PT STATES ITS MAKING HER NERVOUS. WHEELED PT DOWNSTAIRS @ THIS TIME. WILL CPOC.
[2018-07-06 07:40] VITALS: BP 160/83
[2018-07-06 07:40] LABS: BASOPHILS 0.2 % (0-2); EOSINOPHILS 2.5 % (0-7); HEMATOCRIT 35.4 % (36.0-48.0); HEMOGLOBIN 11.6 g/dL (12-16); IMMATURE GRANULOCYTES 0.2 % (0-5); LYMPHOCYTES 26.9 % (15-50); MCH 28.2 pg (26.0-34.0); MCHC 32.8 g/dL (31.0-37.0); MCV 86.1 fL (80.0-100.0); MEAN PLATELET VOLUME 10.9 fL (7.4-10.4); MONOCYTES 4.4 % (2-11); NEUTROPHILS 65.8 % (40-80); PLATELET COUNT 170 10x3/uL (130-400); RBC 4.11 10x6/uL (4.00-5.40); RDW 13.9 % (11.5-14.5); WBC 5.7 10x3/uL (4.8-10.8)
[2018-07-06 08:22] LABS: ALBUMIN 2.6 g/dL (3.4-5.0); ALKALINE PHOSPHATASE 86 U/L (46-116); ALT (SGPT) 22 U/L (10-68); CALCIUM 8.4 mg/dL (8.5-10.1); CARBON DIOXIDE 23.3 mmol/L (21.0-32.0); CHLORIDE - SERUM 108 mmol/L (98-107); CKMB 2.2 U/L (0.0-3.6); CREATINE KINASE 329 UL (21-215); CREATININE - SERUM 1.5 mg/dL (0.6-1.3); POTASSIUM - SERUM 4.1 mmol/L (3.5-5.1); PROTEIN - SERUM 6.7 g/dL (6.4-8.2); SODIUM 141 mmol/L (136-145); UREA NITROGEN 14 mg/dL (7-18); eGFR NON AFRICAN AMERICAN 38 mL/min (90-120)
--- NOTE | 2018-07-06 08:26 | NUR ---
PT REQUEST TO BE TRANSFERRED TO [facility]. CALLED AND SAID THAT THE PT CAN LEAVE AMA AND THEN GO TO [facility] FOR A SECOND OPINION. PT AGREES AND SIGNED AMA FORM. PIV REMOVED WITH CATHETER TIP INTACT AND TELELMETRY REMOVED AND GIVEN TO GRANULATING MACHINE OPERATOR. PT LEFT HOSPITAL WITH HER FAMILY. NOTIFIED FOUNDRY MANAGER, JACQUES ZAVALA AND ASSESSMENT TECHNICIAN, SALONI ZAVALA
[2018-07-06 08:33] LABS: CALC OSMOLALITY 290 mosm/kg (275-300); GLUCOSE 266 mg/dL (74-106); TROPONIN-I 0.091 ng/mL (0.000-0.060)
--- NOTE | 2018-07-06 11:05 | MORECARE ---
CASE MANAGEMENT DISCHARGE SUMMARY PATIENT: SAMRA CERDA UNIT: [id number] ADM DATE: 07/05/18 AGE: 53 : 61 SEX: F ROOM/BED: D.2110 AUTHOR: ADELAIDA HER PHYSICIAN: REFERRING PHYSICIAN: SHIRA KANG MD DATE OF SERVICE: 07/06/18 Discharge Plan Patient Name: SAMRA CERDA Facility: [facility]:[place] : 1965 Planned Disposition: Left Against Medical Advice Anticipated Discharge Date: 07/06/18 Discharge Date: 07/06/2018 Expected LOS: 1 Initial Reviewer: [email or web address] Initial Review Date: 07/06/2018 Generated: 07/06/18 12:05 pm Patient Name: SAMRA CERDA Page [phone] at 1105 All edits/amendments must be made on the electronic document DICTATION DATE: 07/06/18 1104 SHOE TREER: LILLIE 07/06/18 1104 RPT#: [id number] DC DATE:07/06/18 STATUS: DIS IN [facility] [address] [place] [address] END OF REPORT
== END 2018-07-06 08:30 | disposition left against medical advice (07) | DRG 639 ==
LOC: D.ER 16:39 → D.M2 18:58
PROVIDERS: Family Medicine; ADMIT Family Medicine; ATTEND Family Medicine
DX: E11.649 Type 2 diabetes mellitus with hypoglycemia without coma (principal); Z79.4 Long term (current) use of insulin; E11.40 Type 2 diabetes mellitus with diabetic neuropathy, unspecified; H54.7 Unspecified visual loss; I10 Essential (primary) hypertension; R06.02 Shortness of breath; R53.1 Weakness

== ENCOUNTER 2019-06-01 11:56 | Inpatient (IN) | payer MEDICARE, MEDICAID ==
[~2019-06-01] VITALS: Ht 162.6 cm; Wt 107.0 kg
[~2019-06-01 11:56] MED LIST changes: +COZAAR25 MG PO; +HUMULIN R100 U/ML SQ; +HYDROCODON-ACE1 EA10 PO; +LISINOPRIL20 MG PO; +METOPROLOL TART25 MG PO; +NEURONTIN 300300 MG PO; +NEURONTIN 400400 MG PO; +TOPROL XL25 MG PO
[2019-06-01] MEDS ORDERED: COREG6.25 MG PO (13:15)
[2019-06-01] MEDS ORDERED: BASAGLAR K100 UNIT/1 (13:16)
[2019-06-01 13:27] VITALS: BP 125/59
[2019-06-01] MEDS ORDERED: LANTUS SC (13:55)
--- NOTE | 2019-06-01 14:25 | NUR ---
SHE HAS A HARDEN AREA ON HER RIGHT INNER BUTTOCKS. SHE IS ALERT, TALKING. IV STARTED IN THE RIGHT ARM 22 G. PRN PAIN MEDS GIVEN.
[2019-06-01 14:31] LABS: BASOPHILS 0.1 % (0-2); EOSINOPHILS 3.4 % (0-7); HEMATOCRIT 31.5 % (36.0-48.0); HEMOGLOBIN 9.9 g/dL (12-16); IMMATURE GRANULOCYTES 0.5 % (0-5); LYMPHOCYTES 19.1 % (15-50); MCH 26.8 pg (26.0-34.0); MCHC 31.4 g/dL (31.0-37.0); MCV 85.1 fL (80.0-100.0); MONOCYTES 7.7 % (2-11); NEUTROPHILS 69.2 % (40-80); PLATELET COUNT 196 10x3/uL (130-400); RDW 13.4 % (11.5-14.5)
[2019-06-01 14:37] LABS: INR 1.17 (0.85-1.17); PROTIME 14.8 SECONDS (11.6-15.0)
[2019-06-01 14:41] LABS: ALBUMIN 2.9 g/dL (3.4-5.0); ANION GAP 13.7 mmol/L (8-16); BILIRUBIN - TOTAL 0.26 mg/dL (0.2-1.3); CALCIUM 8.1 mg/dL (8.5-10.1); CARBON DIOXIDE 25.2 mmol/L (21.0-32.0); CREATININE - SERUM 2.1 mg/dL (0.6-1.3); POTASSIUM - SERUM 3.9 mmol/L (3.5-5.1); PROTEIN - SERUM 7.2 g/dL (6.4-8.2)
[2019-06-01 16:46] VITALS: BP 128/53
[2019-06-01] MEDS ORDERED: PROCARDIA XL60 MG PO (17:48)
[2019-06-01] MEDS ORDERED: MAG-OXIDE400 MG PO (17:49)
[2019-06-01] MEDS ORDERED: HUMULIN R100 UNIT/1 SC (17:51)
[2019-06-01 20:00] VITALS: BP 123/51
--- NOTE | 2019-06-01 20:00 | NUR ---
PATIENT RESTING IN BED WITH EYES CLOSED. NO S/S OF ACUTE DISTRESS. NO C/O AT THIS TIME. PATIENT HAS RIGHT FOREARM IV, NORMAL SALINE @ KVO. IV IS PATENT WITHOUT REDNESS, SWELLING, OR TENDERNESS. PATIENT HAS AN I&D OF BUTTOCKS ABSCESS IN THE MORNING. NPO AT MIDNIGHT. CALL LIGHT IN PLACE. WILL CONTINUE TO MONITOR.
[2019-06-02 00:50] VITALS: BP 130/67
--- NOTE | 2019-06-02 00:50 | NUR ---
ARMHOLE FELLER HANDSTITCHING MACHINE ALERTED ME THAT PATIENT FELL. PATIENT WAS FOUND LAYING ON BATHROOM FLOOR ON STOMACH. TWO OF PATIENT'S ACRYLIC FINGERNAILS FELL OFF. I ASKED PATIENT IF SHE HIT HER HEAD PATIENT REPLIED, "NO, I PUT MY ARMS OUT AND DIDN'T HIT IT (HER HEAD)." ARMHOLE FELLER HANDSTITCHING MACHINE AND I SAT PATIENT UP IN SHOWER WHEN SHE SAID SHE FELT LIKE MOVING. PATIENT MADE IT SAFELY TO BED, AND WANTED TO SIT ON THE SIDE OF THE BED. PATIENT DENIED ANYTHING HURTING, EXCEPT THE HEADACHE "I HAD BEFORE. I'VE HAD IT FOR A LITTLE WHILE. VITALS: BP 130/67, TEMP 98.3, HR 55, O2 94 ON ROOM AIR, RR 22. BED ALARM AND FALL PRECAUTION PLACED. CALL LIGHT IN PLACE. WILL CONTIUE.
--- NOTE | 2019-06-02 00:57 | NUR ---
PATIENT FELL IN SHOWER. NO S/S OF DISTRESS. PATIENT C/O A HEADACHE THAT PATIENT STATED, "I HAD THE HEADACHE BEFORE I FELL". PATIENT DENIED PAIN ANYWHERE ELSE AT THIS TIME. DOCTOR VIANEY WAS PAGED, AND FALL WAS REPORTED. NO NEW ORDERS GIVEN. DAUGHTER WAS CALLED, BUT NO ANSWER. WILL TRY TO CALL BACK LATER. BED ALARM PLACED, FALL PRECAUTIONS IN PLACE. CALL LIGHT IN PLACE. WILL CONTINUE TO MONITOR.
--- NOTE | 2019-06-02 01:32 | NUR ---
DAUGHTER CALLED BACK, AND WAS NOTIFIED ABOUT THE PATIENT'S FALL.
[2019-06-02 04:00] VITALS: BP 115/64; BP 147/57
--- NOTE | 2019-06-02 04:18 | NUR ---
I have reviewed this patient and I concur with the Shift Assessment completed by the Licensed Practical Nurse today this shift.
[2019-06-02 05:58] LABS: BASOPHILS 0.2 % (0-2); EOSINOPHILS 3.9 % (0-7); HEMATOCRIT 33.3 % (36.0-48.0); HEMOGLOBIN 10.2 g/dL (12-16); IMMATURE GRANULOCYTES 0.5 % (0-5); LYMPHOCYTES 16.4 % (15-50); MCH 26.2 pg (26.0-34.0); MCHC 30.6 g/dL (31.0-37.0); MCV 85.6 fL (80.0-100.0); MEAN PLATELET VOLUME 10.3 fL (7.4-10.4); MONOCYTES 6.6 % (2-11); NEUTROPHILS 72.4 % (40-80); PLATELET COUNT 200 10x3/uL (130-400); RBC 3.89 10x6/uL (4.00-5.40); RDW 13.6 % (11.5-14.5); WBC 6.5 10x3/uL (4.8-10.8)
[2019-06-02 06:24] LABS: ANION GAP 16.2 mmol/L (8-16); CALCIUM 7.7 mg/dL (8.5-10.1); CARBON DIOXIDE 20.9 mmol/L (21.0-32.0); POTASSIUM - SERUM 4.1 mmol/L (3.5-5.1)
--- NOTE | 2019-06-02 07:10 | NUR ---
PT RESTING IN BED TALKING ON PHONE. RESP EVEN AND UNLABORED. REPORTS PAIN 9/10 AT THIS TIME. IV TO RIGHT FOREARM WITH NS @ [facility] INFUSING VIA PUMP. SITE WITHOUT REDNESS OR EDEMA. DENIES FURTHER NEEDS AT THIS TIME. CL WITHIN REACH. ENCOURAGED TO CALL WITH NEEDS. CONTINUE POC
--- NOTE | 2019-06-02 07:59 | HP ---
PATIENT: SAMRA CERDA MEDICAL RECORD: [id number] ACCOUNT: [id number] LOCATION:D.MS [id number] : 61 ADMISSION DATE: 06/01/19 PCP: SHIRA KANG HISTORY AND PHYSICAL EXAMINATION DATE OF ADMISSION: 06/01/2019 REASON FOR ADMISSION: Abscess on buttock. HISTORY OF PRESENT ILLNESS: This is a 54-year-old -Swiss female followed by Dr. Kang. He spoke with her via phone last week about a sore on her buttock. He called out clindamycin 300 mg 4 times a day. She has taken it for 6 days. She came in to the office today for further evaluation as it did not seem to be healing. She states it has gotten larger and draining now, has a foul smell. Further exam in my office showed a large abscess roughly 2 inches or more with foul odor and drainage. The patient has a history of diabetes, congestive heart failure, hypertension and she is directly admitted to [facility] for surgical consultation. PAST MEDICAL AND SURGICAL HISTORY: She has hypertension, diabetes, hyperlipidemia, hypothyroidism, diabetic peripheral neuropathy, chronic low back pain, chronic kidney disease, bilateral retinal detachments and was last year diagnosed with combined diastolic and systolic congestive heart failure at [facility]. She is followed in the local endocrinology clinic for her diabetes and [facility] cardiology clinic for her CHF. PAST SURGICAL HISTORY: Cholecystectomy, ventral hernia repair, and bilateral tubal ligation. ALLERGIES: CODEINE AND MORPHINE. HABITS: Former smoker. Denies alcohol or drug use. FAMILY HISTORY: Father and mother both had cancer. Sister with hypertension, diabetes is in the family. HOME MEDICATIONS: Losartan 100 mg once a day, gabapentin 400 mg t.i.d., levothyroxine 150 mcg once a day, carvedilol 6.25 mg twice a day, [place] 10/325 four times a day, simvastatin 40 mg once a day, nifedipine XL 60 once a day, Mag-Ox 400 mg once a day, glargine insulin uncertain dose. Humulin R 15 units t.i.d., and Lantus insulin 18 units at bedtime. REVIEW OF SYSTEMS: GENERAL: No major weight changes. HEENT: No particular sinus or allergy problems. CARDIAC: See above history with CHF followed at [facility] cardiology clinic. GASTROINTESTINAL: No significant trouble with diarrhea, constipation or heartburn. GENITOURINARY: No significant problems there. MUSCULOSKELETAL: Chronic low back pain, on hydrocodone. NEUROLOGIC: No migraines. No seizures. PSYCHIATRIC: Denies depression or melancholia. PHYSICAL EXAMINATION: VITAL SIGNS: Temperature 98.1, pulse 48, respirations 20, blood pressure HISTORY AND PHYSICAL [id number] SAMRA CERDA 125/59. GENERAL: She is awake, alert, does not appear in acute distress. She walked into our clinic on her own. HEENT: Unremarkable. NECK: Supple. HEART: Regular rate and rhythm without murmur. LUNGS: Clear. ABDOMEN: Soft, flat, nontender. EXTREMITIES: No edema. SKIN: Just to the right of midline on her upper buttock, there is at least 2 inch open abscess with foul smelling drainage noted. LABORATORY DATA: CBC with a white count of 8000, hemoglobin 9.9, hematocrit 31.5, platelets 196,000. INR 1.17, sodium 141, potassium 3.9, chloride 106, CO2 of 25.2, BUN 21, creatinine 2.1, glucose 139, calcium 8.1. Liver functions are all normal. ASSESSMENT: 1. Abscess on buttocks. 2. Diabetes. 3. Chronic kidney disease with uncertain baseline creatinine, the last creatinine I see in our office was 1.6 in February of 2019, it is 2.1 today. PLAN: Surgery has been consulted. We will monitor her diabetes. She may need to be seen by nephrology. Other tests or procedures as warranted. TRANSINT:[id number] Voice Confirmation ID: [id number] DOCUMENT ID: [id number] ISABELL WINTERS MD at 0759 CC: [id number] DICTATION DATE: 06/02/19 0053 ETL CONSULTANT: 06/02/19 0136 ADM IN [facility] [address] [place] [address]
[2019-06-02 09:45] VITALS: BP 149/70
[2019-06-02 12:53] VITALS: BP 158/63
--- NOTE | 2019-06-02 12:56 | NUR ---
PATIENT RECEIVED TO ROOM LYING ON LEFT SIDE WITH DRESSING DRY AND INTACT TO RIGHT BUTTOCK AND DENIES ANY PAIN OR DISCOMFORT AT THIS TIME ENCOURAGED TO USE MEME LIHGT FOR AWSSSIT.
[2019-06-02 12:58] VITALS: Ht 162.6 cm; Wt 107.0 kg
[2019-06-02 18:10] VITALS: BP 148/61
[2019-06-02 20:00] VITALS: BP 155/59
--- NOTE | 2019-06-02 20:00 | NUR ---
PATIENT ASLEEP IN BED. NO S/S OF DISTRESS. NO C/O OF AT THIS TIME. PATIENT HAS IV IN RIGHT FOREARM, NORMAL SALINE @ [facility]. IV IS PATENT WITHOUT REDNESS, SWELLING, OR TENDERNESS. PATIENT HAS DRESSING ON BUTTOCKS, C/D/I, FROM SURGERY TODAY. PATIENT CAN AMUBULATE TO BATHROOM, BUT WITH HELP SINCE SHE FELL LAST NIGHT. CALL LIGHT WITHIN REACH. WILL CONTINUE TO MONITOR.
[2019-06-03] VITALS: BP 172/58
--- NOTE | 2019-06-03 00:27 | NUR ---
I have reviewed this patient and I concur with the Shift Assessment completed by the Licensed Practical Nurse today this shift.
[2019-06-03 04:00] VITALS: BP 153/75
--- NOTE | 2019-06-03 07:28 | NUR ---
AWAKE AND ALERT. ORIENTED X3. NO C/O AT THIS TIME. LUNGS ARE CLEAR BILATERALLY, NO COUGH NOTED. SKIN IS INTACT WITHOUT REDNESS EXCEPT WOUND TO COCCYX AREA WHICH HAS A DRY INTACT DRESSING IN PLACE. IV TO RIGHT FOREARM IS PATENT WITHOUT REDNESS AT INSERTION SITE. DENIES NEEDS. WANTS TO GO HOME.
[2019-06-03 08:02] VITALS: BP 165/66
--- NOTE | 2019-06-03 09:15 | NUR ---
PACKING REMOVED FROM COCCYX AREA. WOUND REPACKED PER ORDERS. TOLERATED WELL. TOOK MOST OF AM MEDS BUT STATED SHE WASN'T TAKING NORVASC AND METOPROLOL AT THIS TIME. WILL MONITOR.
[2019-06-03] MEDS ORDERED: AUGMENTIN 875-11 TAB PO (09:34)
--- NOTE | 2019-06-03 09:54 | MORECARE ---
CASE MANAGEMENT DISCHARGE SUMMARY PATIENT: SAMRA CERDA UNIT: [id number] ADM DATE: 06/01/19 AGE: 54 : 61 SEX: F ROOM/BED: D.2202 AUTHOR: ADELAIDA HER PHYSICIAN: REFERRING PHYSICIAN: ISABELL WINTERS MD DATE OF SERVICE: 06/03/19 Discharge Plan Patient Name: SAMRA CERDA Facility: [facility]:[place] : 1965 Planned Disposition: Home with Home Health Anticipated Discharge Date: Discharge Date: Expected LOS: Initial Reviewer: [email or web address] Initial Review Date: 06/01/2019 Generated: 06/03/19 10:54 am Patient Name: SAMRA CERDA Page [id number] at 0954 All edits/amendments must be made on the electronic document DICTATION DATE: 06/03/19 0954 WORSHIP LEADER: LILLIE 06/03/19 0954 RPT#: [id number] DC DATE: STATUS: ADM IN [facility] [address] [place] [address] END OF REPORT
--- NOTE | 2019-06-03 10:01 | MORECARE ---
CASE MANAGEMENT DISCHARGE SUMMARY PATIENT: SAMRA CERDA UNIT: [id number] ADM DATE: 06/01/19 AGE: 54 : 61 SEX: F ROOM/BED: D.2202 AUTHOR: ADELAIDA HER PHYSICIAN: REFERRING PHYSICIAN: ISABELL WINTERS MD DATE OF SERVICE: 06/03/19 Discharge Plan Patient Name: SAMRA CERDA [facility] : 1965 Planned Disposition: Home with Home Health Anticipated Discharge Date: Discharge Date: Expected LOS: Initial Reviewer: [email or web address] Initial Review Date: 06/01/2019 Generated: 06/03/19 11:00 am DCPIA - Discharge Planning Initial Assessment Updated by [email or web address]: Casi Sims on 06/03/19 9:58 am * Is the patient Alert and Oriented? Yes * How many steps to enter\exit or inside your home? * PCP JORGE LUIS * Pharmacy [facility] [address] * Preadmission Environment Home with Family * ADLs Independent * Equipment None * List name and contact numbers for known caregivers / representatives who currently or will assist patient after discharge: CARLOS CERDA (DAUGHTER) [phone] * Verbal permission to speak to the caregivers and representatives has been obtained from the patient. N/A * Community resources currently utilized None * Additional services required to return to the preadmission environment? Yes * Can the patient safely return to the preadmission environment? Yes * Has this patient been hospitalized within the prior 30 days at any hospital? No Last DP export: 06/03/19 8:54 a Patient Name: SAMRA CERDA Page [id number] at 1001 All edits/amendments must be made on the electronic document DICTATION DATE: 06/03/19 1000 CELL BUILDER: LILLIE 06/03/19 1000 RPT#: [id number] DC DATE: STATUS: ADM IN [facility] [address] [place] [address] END OF REPORT
--- NOTE | 2019-06-03 10:08 | MORECARE ---
CASE MANAGEMENT DISCHARGE SUMMARY PATIENT: SAMRA CERDA UNIT: [id number] ADM DATE: 06/01/19 AGE: 54 : 61 SEX: F ROOM/BED: D.2202 AUTHOR: ADELAIDA HER PHYSICIAN: REFERRING PHYSICIAN: ISABELL WINTERS MD DATE OF SERVICE: 06/03/19 Discharge Plan Patient Name: SAMRA CERDA Facility: [facility]:[place] : 1965 Planned Disposition: Home with Home Health Anticipated Discharge Date: Discharge Date: Expected LOS: Initial Reviewer: [id number] Initial Review Date: 06/01/2019 Generated: 06/03/19 11:07 am Comments DCP- Discharge Planning Updated by [email or web address]: Casi Sims on 06/03/19 9:[address] Patient Name: SAMRA CERDA Admission Status: Urgent Accout number: [id number] Admission Date: 06-01-2019 : 1965 Admission Diagnosis: Attending: ISABELL WINTERS Current LOS: 2 Anticipated DC Date: Planned Disposition: Home with Home Health Primary Insurance: [facility] MEDICARE SOLUTIONS Discharge Planning Comments: CM met with patient to assess for discharge planning needs. Patient lives at home and her son is living with her. She is independent with her care at home. Her daughter will be her hazardous materials tanker driver home today. She feels safe about discharging home. She did state that she fell at the hospital the first night in the shower at 0100 am. Someone was suppose to come speak with her, but has not. She broke nails that she has been growing out for the past 10 years. She is very upset. I have called the House Sup (Mary) to come speak with her. She will need home health for dressing changes. CHARITY with [employer]. I have notified Ray at [employer]. CM will continue to follow and assist as needed. Human Resource Statistician: Casi Sims DCPIA - Discharge Planning Initial Assessment Updated by [email or web address]: Casi Sims on 06/03/19 9:58 am * Is the patient Alert and Oriented? Yes * How many steps to enter\exit or inside your home? * PCP JORGE LUIS * Pharmacy [facility] [address] * Preadmission Environment Home with Family * ADLs Independent * Equipment None * List name and contact numbers for known caregivers / representatives who currently or will assist patient after discharge: CARLOS CERDA (DAUGHTER) [phone] * Verbal permission to speak to the caregivers and representatives has been obtained from the patient. N/A * Community resources currently utilized None * Additional services required to return to the preadmission environment? Yes * Can the patient safely return to the preadmission environment? Yes * Has this patient been hospitalized within the prior 30 days at any hospital? No External Providers External Provider: K[facility]ub Next Contact Date: Service Request Date: Service Type: Resolution: Reviewer: Comments: Coverage Notice Reviewer: [email or web address] Yuliet Sims Notice Issued Date-Time: 06/03/2019 9:35 Notice Type: Patient Choice Letter Notice Delivered To: Patient Relationship to Patient: Cook Helper Fruit Name: Delivery Method: HAND - Hand Delivered Nelda Days: Prior Verbal Notification: Recipient Understood Notice: Yes Recipient Signature: Yes Med Rec Note Co-signed by Attending: Coverage Notice Comment: CHARITY with [employer] Last DP export: 06/03/19 9:01 a Patient Name: SAMRA CERDA Page [id number] at 1008 All edits/amendments must be made on the electronic document DICTATION DATE: 06/03/19 1007 CRIMINOLOGY TEACHER: LILLIE 06/03/19 1007 RPT#: [id number] DC DATE: STATUS: ADM IN [facility] [address] [place] [address] END OF REPORT
--- NOTE | 2019-06-03 11:08 | NUR ---
DISCHARGED TO HOME AMBULATORY WITH FAMILY. DISCHARGE INSTRUCTIONS GIVEN BOTH VERBALLY AND WRITTEN. ALL QUESTIONS ANSWERED. PATIENT VERBALIZED UNDERSTANDING OF SAME. IV TO RIGHT FOREARM D/C WITH CATHETER INTACT. NO NEW PRESCRIPTIONS NEEDED. ALL BELONGINGS WITH PATIENT. SUPPLIES SENT FOR WOUND CARE.
--- NOTE | 2019-06-03 14:34 | MORECARE ---
CASE MANAGEMENT DISCHARGE SUMMARY PATIENT: SAMRA CERDA UNIT: [id number] ADM DATE: 06/01/19 AGE: 54 : 61 SEX: F ROOM/BED: D.2202 AUTHOR: ADELAIDA HER PHYSICIAN: REFERRING PHYSICIAN: ISABELL WINTERS MD DATE OF SERVICE: 06/03/19 Discharge Plan Patient Name: SAMRA CERDA Facility: [facility]:[place] : 1965 Planned Disposition: Home with Home Health Anticipated Discharge Date: Discharge Date: 06/03/2019 Expected LOS: 0 Initial Reviewer: [email or web address] Initial Review Date: 06/01/2019 Generated: 06/03/19 3:33 pm Comments DCP- Discharge Planning Updated by [email or web address]: Casi Sims on 06/03/19 9:[address] Patient Name: SAMRA CERDA Admission Status: Urgent Accout number: [id number] Admission Date: 06-01-2019 : 1965 Admission Diagnosis: Attending: ISABELL WINTERS Current LOS: 2 Anticipated DC Date: Planned Disposition: Home with Home Health Primary Insurance: [facility] MEDICARE SOLUTIONS Discharge Planning Comments: CM met with patient to assess for discharge planning needs. Patient lives at home and her son is living with her. She is independent with her care at home. Her daughter will be her driver license reviewing officer home today. She feels safe about discharging home. She did state that she fell at the hospital the first night in the shower at 0100 am. Someone was suppose to come speak with her, but has not. She broke nails that she has been growing out for the past 10 years. She is very upset. I have called the House Sup (Mary) to come speak with her. She will need home health for dressing changes. CHARITY with [employer]. I have notified Ray at [employer]. CM will continue to follow and assist as needed. Data Center Architect: Casi Sims DCPIA - Discharge Planning Initial Assessment Updated by [email or web address]: Casi Sims on 06/03/19 9:58 am * Is the patient Alert and Oriented? Yes * How many steps to enter\exit or inside your home? * PCP JORGE LUIS * Pharmacy [facility] [address] * Preadmission Environment Home with Family * ADLs Independent * Equipment None * List name and contact numbers for known caregivers / representatives who currently or will assist patient after discharge: CARLOS CERDA (DAUGHTER) [phone] * Verbal permission to speak to the caregivers and representatives has been obtained from the patient. N/A * Community resources currently utilized None * Additional services required to return to the preadmission environment? Yes * Can the patient safely return to the preadmission environment? Yes * Has this patient been hospitalized within the prior 30 days at any hospital? No Coverage Notice Reviewer: [email or web address] Yuliet Sims Notice Issued Date-Time: 06/03/2019 9:35 Notice Type: Patient Choice Letter Notice Delivered To: Patient Relationship to Patient: Adz Worker Name: Delivery Method: HAND - Hand Delivered Nelda Days: Prior Verbal Notification: Recipient Understood Notice: Yes Recipient Signature: Yes Med Rec Note Co-signed by Attending: Coverage Notice Comment: CHARITY with [facility] Last DP export: 06/03/19 9:08 a Patient Name: SAMRA CERDA Page 17924 at 1434 All edits/amendments must be made on the electronic document DICTATION DATE: 06/03/19 1433 MARKETING FORECASTER: LILLIE 06/03/19 1433 RPT#: [id number] DC DATE:06/03/19 STATUS: DIS IN [facility] [address] [place] [address] END OF REPORT
--- NOTE | 2019-06-06 10:39 | OP ---
PATIENT NAME: SAMRA CERDA MEDICAL RECORD: [id number] :61 LOCATION:D.MS Daley2 ADMISSION DATE:06/01/19 SURGEON: MARYBETH CAMPOS MD DATE OF OPERATION: 06/02/2019 PREOPERATIVE DIAGNOSES: 1. Right buttock abscess. 2. Diabetes mellitus. POSTOPERATIVE DIAGNOSES: 1. Right buttock abscess. 2. Diabetes mellitus. PROCEDURE: I&D of the right buttock abscess. SURGEON: Marybeth Campos MD REPORT OF PROCEDURE: The patient was placed in the left lateral decubitus position. The buttock region was prepped and draped in sterile fashion. A skin incision was made on the area of fluctuance and there was purulent drainage. Cultures were taken of this. There was some necrotic tissue present, so this was completely excised. Once we had this necrotic tissue gone, this left about a 2 x 2 cm opening that was approximately 1.5 cm deep and tracked superiorly. We squeezed out any purulent material that we could find and then placed peroxide and saline solution in the wound until we had a good clear return of fluid. Once this was done, then the wound was packed with 2 inch Kerlix dipped in peroxide. This was then covered with 4 x 4s and an ABD pad. COMPLICATIONS: None. CONDITION: Stable. ANESTHESIA: General endotracheal. BLOOD LOSS: Minimal. TRANSINT:[id number] Voice Confirmation ID: [id number] DOCUMENT ID: [id number] MARYBETH CAMPOS MD at 1039 CC: [id number] DICTATION DATE: 06/02/[address] SCAN SPECIAL PROCEDURES TECHNOLOGIST: 06/02/19 1521 DIS IN 06/03/19 [facility] [address] [place] [place] [id number]
== END 2019-06-03 11:10 | disposition home health service (06) | DRG 603 ==
LOC: D.MS 11:56
PROVIDERS: Anesthesiology; Surgery; ADMIT Family Medicine; ATTEND Family Medicine
PROC: 0H98XZZ Drainage of Buttock Skin, External Approach (ICD-10-PCS; principal; 2019-06-02 09:45)
DX: L02.31 Cutaneous abscess of buttock (principal); I13.0 Hypertensive heart and chronic kidney disease with heart failure and stage 1 through stage 4 chronic kidney disease, or unspecified chronic kidney disease; I50.40 Unspecified combined systolic (congestive) and diastolic (congestive) heart failure; E78.5 Hyperlipidemia, unspecified; E03.9 Hypothyroidism, unspecified; E11.22 Type 2 diabetes mellitus with diabetic chronic kidney disease; N18.9 Chronic kidney disease, unspecified; E11.40 Type 2 diabetes mellitus with diabetic neuropathy, unspecified; Z87.891 Personal history of nicotine dependence

== ENCOUNTER → 2019-08-07 12:05 | Outpatient (CLI) | payer MEDICARE, MEDICAID ==
[2019-06-02 12:58] VITALS: BMI 40.5
[~2019-08-07 12:05] MED LIST changes: +AUGMENTIN 875-11 TAB PO; +BASAGLAR K100 UNIT/1; +COREG6.25 MG PO; +HUMULIN R100 UNIT/1 SC; +LANTUS SC; +MAG-OXIDE400 MG PO; +PROCARDIA XL60 MG PO
[2019-08-07 12:57] LABS: % SATURATION 19 % (15-55); IRON 64 ug/dl (35-150); TOTAL IRON BIND CAPACITY 328 ug/dl (260-445); UNSAT IRON BIND CAPACITY 264 ug/dl (150-375)
[2019-08-08 16:09] LABS: IMMUNOGLOBULIN A 314 mg/dL (87-352); IMMUNOGLOBULIN G 1139 mg/dL (586-1602); IMMUNOGLOBULIN M 77 mg/dL (26-217)
== END | disposition home or self-care (01) ==
LOC: D.LAB 12:05
PROVIDERS: ATTEND Nurse Practitioner Family
DX: I10 Essential (primary) hypertension (principal); D64.9 Anemia, unspecified; N25.81 Secondary hyperparathyroidism of renal origin; R80.9 Proteinuria, unspecified; Z68.41 Body mass index [BMI] 40.0-44.9, adult